=== PATIENT | male | born 1960 | race Caucasian/White ===

== ENCOUNTER 2019-11-19 13:53 | Outpatient (REF) | payer BC, SELFPAY ==
[2019-11-19 14:23] LABS: MANUAL DIFF FLAG NO
[2019-11-19 14:28] LABS: Basophils Absolute Auto 0.1 X10*3/uL (0.0-0.2); Basophils Percent Auto 0.8 % (0-2); Eosinophils Absolute Auto 0.3 X10*3/uL (0.0-0.4); Eosinophils Percent Auto 3.4 % (0-4); Hematocrit 41.7 % (42-52); Hemoglobin 14.4 g/dl (14.0-18.0); Imm Gran Abs Auto 0.02 X10*3/uL (0.00-0.03); Imm Gran Pct Auto 0.3 % (0.0-0.4); Lymphocytes Absolute Auto 2.8 X10*3/uL (1.2-4.9); Lymphocytes Percent Auto 38.2 % (20-40); Mean Corpuscular HGB Conc 34.5 g/dl (31.0-36.0); Mean Corpuscular Hemoglobin 31.3 pg (27.0-33.0); Mean Corpuscular Volume 90.7 fL (80-98); Mean Platelet Volume 9.6 fL (9.4-12.4); Monocytes Absolute Auto 0.9 X10*3/uL (0.1-1.2); Monocytes Percent Auto 12.2 % (2-11); Neutrophils Absolute Auto 3.3 X10*3/uL (2.0-8.3); Neutrophils Percent Auto 45.1 % (45-73); Platelet Count 272 X10*3/uL (160-400); Red Cell Distribution Width 11.9 % (11.0-16.0); White Blood Count 7.3 X10*3/uL (4.8-10.8)
[2019-11-19 15:03] LABS: Estimated Glomerular Filt Rate > 60; Potassium 4.2 mmol/l (3.3-5.1)
== END 2019-11-19 13:54 | disposition home or self-care (01) ==
LOC: HO.LAB 13:53
PROVIDERS: Visit Provider Internal Medicine Cardiovascular Disease
DX: I25.119 Atherosclerotic heart disease of native coronary artery with unspecified angina pectoris (principal)
CPT/HCPCS: 36415; 82565; 84132; 85025

== ENCOUNTER → 2019-12-18 12:04 | Outpatient (REF) | payer BC, SELFPAY ==
--- NOTE | 2019-12-18 13:00 | CA_ITS ---
Transthoracic Echocardiogram Patient (Last, First, Middle): Milton Agarwal, Gender: Male Date of : 1960 Age: 59 Procedure Date: 12/18/2019 Procedure Type: Transthoracic Echocardiogram Location: OP Height: 177.8 cm Weight: 90.72 kg BSA: 2.09 m2 Heart Rate: bpm BP: 128 / 60 mmHg Regional Environmental Manager: Referring MD: Pacheco Melvin MD Principal Systems Architect: Tom Ventura MD Symptoms: I42.9 CARDIOMYOPATHY Study Quality: Fair, Good images on Apical views ECG Rhythm: Sinus Conclusions: - 1. Moderate to severe reduction LV systolic function with LVEF of 30-35% with grade 1 diastolic dysfunction 2. Normal cardiac valvular Doppler 3. Normal RV systolic pressure 4. No pericardial effusion Findings Left Ventricle Normal left ventricular cavity size. There is normal left ventricular wall thickness. The left ventricular systolic function is moderate to severely decreased. The visually estimated ejection fraction is between 30-35%. Spectral Doppler is indicative of an impaired relaxation filling pattern. E/E prime ratio is <8, consistent with normal filling pressures. Evidence suggests grade I (mild) diastolic dysfunction. Right Ventricle Normal right ventricular cavity size and systolic function. Atria Both atria are normal in size. There is no evidence of interatrial shunt. Aortic Valve Normal aortic valve structure and function. There is no aortic valve stenosis. There is no aortic valve regurgitation. Mitral Valve Normal mitral valve structure and function. There is trace mitral valve regurgitation. There is no mitral valve stenosis. Pulmonic Valve The pulmonic valve is likely normal. Tricuspid Valve Normal tricuspid valve structure. There is trace tricuspid valve regurgitation. The right ventricular systolic pressure is normal. The right ventricular systolic pressure is 19 mmHg. Normal right atrial pressure. There is no evidence of pulmonary hypertension. Great Vessels All visible segments of the aorta are normal in size. The pulmonary artery was not well visualized. Venous The inferior vena cava is normal in size and collapses greater than 50% with inspiration. Pericardium/Pleural There is no evidence of pericardial effusion. Prior Study Comparison Changes noted compared to prior study dated: 03/20/2019. LV systolic function is marginally improved Measurements 2D Linear Measurements IVSd: 0.74 0.6-0.9/0.6-1.0 cm LVIDd: 4.65 3.9-5.3/4.2-5.9 cm LVIDd Index: 2.22 2.4-3.2/2.2-3.1 cm/m2 LVIDs: 3.81 2.0-3.6 cm LVPWd: 0.79 0.7-1.1 cm Ao Root: 3.10 2.1-3.5 cm LA Diam: 3.30 2.7-3.8/3.0-4.0 cm LAIDs Index: 1.58 1.5-2.3 cm/m2 LV Mass: 141.02 67-162/88-224 g LV Mass Index: 67.48 43-95/49-115 g/m2 LVOT Diam: 2.30 3.0+(-)1.3 cm 2D Systolic Function EF 4C: 33.10 >55% EF 2C: 40.50 >55% EF BiP: 34.90 >55% Mitral Valve MV Pk E: 0.48 MV PK A: 0.83 MV Decel Time: 232.00 E/A: 0.60 E'Lateral: 6.74 E'Medial: 5.55 E/E' Med: 8.70 E/E' Lat: 7.20 PHT: 68.00 MVA PHT: 3.24 Decel [place]: 2.08 Aortic Valve AoV Pk Collins: 1.16 AoV Mn [place]il[place]: 0.85 AoV VTI: 0.28 AoV Pk Grad: 5.00 Aov Mn Grad: 3.00 JODI Cont.VTI: 2.66 LVOT LVOT Pk Collins: 0.89 LVOT Mn Collins: 0.54 LVOT VTI: 0.18 LVOT Pk Grad: 3.00 LVOT Mn Grad: 1.00 LVOT Diam: 2.30 LVOT Area: 4.15 Diastolic Function MV Pk E: 0.48 MV Pk A: 0.83 E/A: 0.60 E'Medial: 5.55 E/E' Med: 8.70 E' Laterial: 6.74 E/E' Lat: 7.20 Tricuspid Valve TR Pk Collins: 2.00 TR Pk Grad: 16.00 RA Press: 3.00 RVSP: 19.00 Great Vessels Aorta Ao Root-2D: 3.10 2.0-3.7 cm Ao Asc: 3.10 2.1-3.4 cm Pulmonary Valve PV Pk Collins: 1.03 Peak PV Grad: 4.00 Updated in Other Vendor System with Status of Final Tom Ventura MD electronically signed on 12/19/2019 12:55:06 PM with status of Final
== END ==
LOC: HO.CARD 12:04
PROVIDERS: Visit Provider Internal Medicine
DX: I42.9 Cardiomyopathy, unspecified (principal)
CPT/HCPCS: 93306

== ENCOUNTER → 2019-12-25 11:00 | Outpatient (BNVA) | payer BC, SELFPAY | PROVIDERS: PCP Internal Medicine; Referring Provider Internal Medicine; Visit Provider Nurse Practitioner Family | DX: Z76.89 Persons encountering health services in other specified circumstances (principal) ==

== ENCOUNTER → 2020-04-01 12:37 | Outpatient (REF) | payer BC, SELFPAY ==
--- NOTE | 2020-04-01 12:43 | CA_ITS ---
Transthoracic Echocardiogram Patient (Last, First, Middle): Milton Agarwal, Gender: Male Date of : 1960 Age: 59 Procedure Date: 04/01/2020 Procedure Type: Transthoracic Echocardiogram Location: OP Height: 177.8 cm Weight: 90.72 kg BSA: 2.09 m2 Heart Rate: bpm BP: 122 / 80 mmHg Supervisor Hanging And Trimming: ANDREA Referring MD: Dee Bansal FUNERAL ASSISTANT-C Air Brake Tester: Tom Ventura MD Symptoms: I25.5 - Ischemic cardiomyopathy Study Quality: Fair ECG Rhythm: Sinus Conclusions: - 1. Mildly reduced LV systolic function with impaired relaxation filling pattern Findings Left Ventricle Normal left ventricular cavity size. There is normal left ventricular wall thickness. The left ventricular systolic function is mildly decreased. The visually estimated ejection fraction is between 45-50%. Spectral Doppler is indicative of an impaired relaxation filling pattern. E/E prime ratio is <8, consistent with normal filling pressures. Wall Motion Rest Echo Findings The inferoseptal wall is hypokinetic. The basal inferior segment is akinetic. All other scored wall segments showed normal motion. Prior Study Comparison Changes noted compared to prior study dated: 12/18/2019. LV systolic function is improved Measurements 2D Linear Measurements IVSd: 0.74 0.6-0.9/0.6-1.0 cm LVIDd: 5.24 3.9-5.3/4.2-5.9 cm LVIDd Index: 2.51 2.4-3.2/2.2-3.1 cm/m2 LVIDs: 3.39 2.0-3.6 cm LVPWd: 0.83 0.7-1.1 cm LV Mass: 178.68 67-162/88-224 g LV Mass Index: 85.49 43-95/49-115 g/m2 2D Systolic Function EF 4C: 42.70 >55% EF 2C: 47.70 >55% EF BiP: 46.40 >55% Mitral Valve MV Pk E: 0.88 MV PK A: 1.03 MV Decel Time: 146.00 E/A: 0.90 E'Lateral: 9.68 E'Medial: 11.50 E/E' Med: 7.60 E/E' Lat: 9.10 PHT: 43.00 MVA PHT: 5.12 Decel [place]: 6.01 Diastolic Function MV Pk E: 0.88 MV Pk A: 1.03 E/A: 0.90 E'Medial: 11.50 E/E' Med: 7.60 E' Laterial: 9.68 E/E' Lat: 9.10 Updated in Other Vendor System with Status of Final Tom Ventura MD electronically signed on 04/01/2020 4:07:27 PM with status of Final
== END ==
LOC: HO.CARD 12:37
PROVIDERS: Visit Provider Nurse Practitioner Family
DX: I25.5 Ischemic cardiomyopathy (principal)
CPT/HCPCS: 93308

== ENCOUNTER → 2020-04-22 10:46 | Outpatient (BNVA) | payer BC, SELFPAY | PROVIDERS: PCP Internal Medicine; Visit Provider Nurse Practitioner Family ==

== ENCOUNTER 2020-11-22 10:02 | Outpatient (REF) | payer BC, SELFPAY ==
[2020-11-22 12:03] LABS: Alanine Aminotransferase 25 U/L (0-40); Aspartate Amino Transferase 15 U/L (5-37); Cholesterol 126 mg/dL; HDL Cholesterol 38 mg/dL; LDL Cholesterol Calculated 70 mg/dl; Triglycerides 91 mg/dL
== END 2020-11-22 10:03 | disposition home or self-care (01) ==
LOC: HO.LAB 10:02
PROVIDERS: Nurse Practitioner Family; PCP Internal Medicine; Referring Provider Internal Medicine; Visit Provider Internal Medicine
DX: I25.10 Atherosclerotic heart disease of native coronary artery without angina pectoris (principal); E78.5 Hyperlipidemia, unspecified; I25.5 Ischemic cardiomyopathy; Z79.82 Long term (current) use of aspirin; Z79.899 Other long term (current) drug therapy
CPT/HCPCS: 36415; 80061; 84450; 84460; 93005

== ENCOUNTER 2021-05-26 10:54 | Outpatient (REF) | payer BC, SELFPAY ==
--- NOTE | ~2021-05-26 | US_ITS ---
EXAMINATION: US VENOUS ULTRASOUND WITH DOPPLER LOWER EXTREMITY, LEFT CLINICAL INFORMATION: Left lower extremity pain. COMPARISON: None TECHNIQUE: Ultrasound of the deep veins is performed from the hip to the calf with compression sonography and color and pulse Doppler assessment. Spectral analysis with color-flow imaging is performed. FINDINGS: There is normal venous compression and respiratory variation and augmented flow. The visualized common femoral vein, superficial femoral vein, profunda femoral vein, popliteal vein, and the trifurcation region shows no evidence of deep venous thrombosis. No left popliteal cyst. Mild subcutaneous edema seen in the left calf. A hypoechoic, horizontally oriented collection is seen in the anterior soft tissues in the left levy measuring approximately 4.3 x 1.3 x 3.8 cm. If the patient's symptoms persist, followup ultrasound in 5 days 7 days might be of value to exclude proximal propagation from a non-visualized calf vein. US/US venous duplex LE LT IMPRESSION: 1. No evidence for deep venous thrombosis in the visualized veins of the left lower extremity. 2. Soft tissue collection in the region of the left anterior levy with mild adjacent edema is nonspecific, but suggests a hematoma. Correlate with physical exam. * If these findings persist or enlarge, short-term repeat targeted soft tissue ultrasound can be performed as clinically indicated to assess for change.
== END 2021-05-26 10:55 | disposition home or self-care (01) ==
LOC: HO.HMGCX 10:54
PROVIDERS: PCP Internal Medicine; Visit Provider Internal Medicine
DX: I82.402 Acute embolism and thrombosis of unspecified deep veins of left lower extremity (principal)
CPT/HCPCS: 93971

== ENCOUNTER → 2021-06-02 07:16 | Outpatient (REF) | payer BC, SELFPAY ==
--- NOTE | 2021-06-02 07:19 | CA_ITS ---
Transthoracic Echocardiogram Patient (Last, First, Middle): Milton Agarwal, Gender: Male Date of : 1960 Age: 61 Procedure Date: 06/02/2021 Procedure Type: Transthoracic Echocardiogram Location: OP Height: 177.8 cm Weight: 90.72 kg BSA: 2.09 m2 Heart Rate: bpm BP: 138 / 82 mmHg Credit Operations Specialist: CATRACHITO Referring MD: Pacheco Melvin MD Symptoms: I25.5 - Ischemic cardiomyopathy Study Quality: Fair Conclusions: - Normal left ventricular cavity size. There is normal left ventricular wall thickness. The left ventricular systolic function is low normal. The visually estimated ejection fraction is between 50-55%. - E/E prime ratio is between 8 and 15 consistent with indeterminate filling pressures. - The basal inferior segment is akinetic. - Normal right ventricular cavity size and systolic function. Findings Left Ventricle Normal left ventricular cavity size. There is normal left ventricular wall thickness. The left ventricular systolic function is low normal. The visually estimated ejection fraction is between 50-55%. Abnormal diastolic function is noted. Spectral Doppler is indicative of an impaired relaxation filling pattern. E/E prime ratio is between 8 and 15 consistent with indeterminate filling pressures. Wall Motion Rest Echo Findings The basal inferior segment is akinetic. Right Ventricle Normal right ventricular cavity size and systolic function. Atria The left atrium is normal in size. Aortic Valve Normal aortic valve structure and function. There is no aortic valve stenosis. There is no aortic valve regurgitation. Mitral Valve Normal mitral valve structure and function. There is no mitral valve regurgitation. There is no mitral valve stenosis. Pulmonic Valve The pulmonic valve is likely normal. Tricuspid Valve Normal tricuspid valve structure and function. There is no tricuspid valve regurgitation. Normal right atrial pressure. There is no evidence of pulmonary hypertension. Great Vessels All visible segments of the aorta are normal in size. The visualized portions of the pulmonary artery and branches are normal. Venous The inferior vena cava is normal in size and collapses greater than 50% with inspiration. Pericardium/Pleural There is no evidence of pericardial effusion. Prior Study Comparison Changes noted compared to prior study dated: 04/01/2020. EF 50-55%, Measurements 2D Linear Measurements IVSd: 0.91 0.6-0.9/0.6-1.0 cm LVIDd: 5.52 3.9-5.3/4.2-5.9 cm LVIDd Index: 2.64 2.4-3.2/2.2-3.1 cm/m2 LVIDs: 3.97 2.0-3.6 cm LVPWd: 1.11 0.7-1.1 cm LA Diam: 3.70 2.7-3.8/3.0-4.0 cm LAIDs Index: 1.77 1.5-2.3 cm/m2 LV Mass: 271.24 67-162/88-224 g LV Mass Index: 129.78 43-95/49-115 g/m2 LVOT Diam: 2.20 3.0+(-)1.3 cm 2D Systolic Function EF 4C: 48.80 >55% EF 2C: 47.40 >55% EF BiP: 48.60 >55% Mitral Valve MV Pk E: 0.70 MV PK A: 1.03 MV Decel Time: 150.00 E/A: 0.70 E'Lateral: 8.49 E'Medial: 6.85 E/E' Med: 10.30 E/E' Lat: 8.30 PHT: 44.00 MVA PHT: 5.00 Decel [place]: 4.69 Aortic Valve AoV Pk Collins: 1.03 AoV Mn Collins: 0.78 AoV VTI: 0.23 AoV Pk Grad: 4.00 Aov Mn Grad: 3.00 JODI Cont.VTI: 2.79 LVOT LVOT Pk Collins: 0.81 LVOT Mn Collins: 0.52 LVOT VTI: 0.17 LVOT Pk Grad: 3.00 LVOT Mn Grad: 1.00 LVOT Diam: 2.20 LVOT Area: 3.80 Diastolic Function MV Pk E: 0.70 MV Pk A: 1.03 E/A: 0.70 E'Medial: 6.85 E/E' Med: 10.30 E' Laterial: 8.49 E/E' Lat: 8.30 Right Ventricle TAPSE (mm): 17.80 TVS' Collins: 10.70 Tricuspid Valve TR Pk Collins: 1.35 TR Pk Grad: 7.00 RA Press: 3.00 RVSP: 10.00 Great Vessels Aorta Sinus of Valsalva: 3.17 2.0-3.[address] [place]: 2.67 1.7-3.4 cm Ao Asc: 3.20 2.1-3.4 cm Ao Arch: 3.20 Updated in Other Vendor System with Status of Final Humberto Foster MD electronically signed on 06/04/2021 12:40:50 PM with status of Final
== END ==
LOC: HO.CARD 07:16
PROVIDERS: PCP Internal Medicine; Visit Provider Internal Medicine
DX: I25.5 Ischemic cardiomyopathy (principal)
CPT/HCPCS: 93306

== ENCOUNTER → 2021-06-08 15:04 | Outpatient (BNVA) | payer BC, SELFPAY | PROVIDERS: PCP Internal Medicine; Referring Provider Internal Medicine; Visit Provider Internal Medicine | DX: Z13.89 Encounter for screening for other disorder (principal) ==

== ENCOUNTER 2022-03-16 08:41 | Outpatient (REF) | payer BC, SELFPAY ==
[2022-03-16 11:12] LABS: MANUAL DIFF FLAG NO
[2022-03-16 11:24] LABS: Basophils Absolute Auto 0.1 X10*3/uL (0.0-0.2); Basophils Percent Auto 0.7 % (0-2); Eosinophils Absolute Auto 0.2 X10*3/uL (0.0-0.4); Eosinophils Percent Auto 2.4 % (0-4); Hemoglobin 15.3 g/dl (14.0-18.0); Imm Gran Abs Auto 0.02 X10*3/uL (0.00-0.03); Imm Gran Pct Auto 0.3 % (0.0-0.4); Lymphocytes Absolute Auto 2.6 X10*3/uL (1.2-4.9); Lymphocytes Percent Auto 34.6 % (20-40); Mean Corpuscular Hemoglobin 30.5 pg (27.0-33.0); Mean Corpuscular Volume 89.6 fL (80.0-98.0); Mean Platelet Volume 10.1 fL (9.4-12.4); Monocytes Absolute Auto 0.9 X10*3/uL (0.1-1.2); Monocytes Percent Auto 12.1 % (2-11); Neutrophils Absolute Auto 3.7 x10*3/uL (2.0-8.3); Neutrophils Percent Auto 49.9 % (45-73); Platelet Count 300 X10*3/uL (160-400); Red Blood Count 5.02 X10*6/uL (4.60-5.80); Red Cell Distribution Width 12.6 % (11.0-16.0); White Blood Count 7.5 X10*3/uL (4.8-10.8)
[2022-03-16 11:48] LABS: Alanine Aminotransferase 19 U/L (0-40); Albumin Level 4.1 g/dL (3.5-5.0); Alkaline Phosphatase 73 U/L (39-117); Anion Gap 11 (12-20); Aspartate Amino Transferase 14 U/L (5-37); Bilirubin Total 1.2 mg/dL (0.0-1.0); Blood Urea Nitrogen 15 mg/dL (9-16); Calcium 8.9 mg/dL (8.4-10.2); Carbon Dioxide 25 mmol/L (22-29); Chloride 108 mmol/L (96-108); Cholesterol 134 mg/dL; Estimated Glomerular Filt Rate > 60; Glucose Fasting 139 mg/dL (60-99); HDL Cholesterol 29 mg/dL; LDL Cholesterol Calculated 76 mg/dl; Potassium 4.2 mmol/L (3.3-5.1); Sodium 140 mmol/L (135-145); Total Protein 6.3 g/dL (6.5-8.0); Triglycerides 148 mg/dL
[2022-03-16 12:10] LABS: TSH reflex Free T4 0.99 uIU/mL (0.32-4.0)
== END 2022-03-16 08:42 | disposition home or self-care (01) ==
LOC: HO.HMGCLDS 08:41
PROVIDERS: Visit Provider Internal Medicine
DX: Z00.01 Encounter for general adult medical examination with abnormal findings (principal); I25.10 Atherosclerotic heart disease of native coronary artery without angina pectoris; I25.5 Ischemic cardiomyopathy; I10 Essential (primary) hypertension; E66.09 Other obesity due to excess calories; E78.5 Hyperlipidemia, unspecified; F17.200 Nicotine dependence, unspecified, uncomplicated
CPT/HCPCS: 36415; 80053; 80061; 84443; 85025

== ENCOUNTER 2022-03-30 09:05 | Outpatient (REF) | payer BC, SELFPAY ==
[2022-03-30 12:18] LABS: Estimated Average Glucose 137 mg/dL; Hemoglobin A1c % 6.4 %
== END 2022-03-30 09:06 | disposition home or self-care (01) ==
LOC: HO.HMGCLDS 09:05
PROVIDERS: PCP Internal Medicine; Visit Provider Internal Medicine
DX: R73.9 Hyperglycemia, unspecified (principal)
CPT/HCPCS: 36415; 83036

== ENCOUNTER → 2022-06-01 13:37 | Outpatient (BNVA) | payer BC, SELFPAY | PROVIDERS: PCP Internal Medicine; Visit Provider Internal Medicine | DX: Z13.89 Encounter for screening for other disorder (principal) ==

== ENCOUNTER → 2022-06-14 14:46 | Outpatient (BNVA) | payer BC, SELFPAY | PROVIDERS: PCP Internal Medicine; Referring Provider Internal Medicine; Visit Provider Internal Medicine | DX: I25.10 Atherosclerotic heart disease of native coronary artery without angina pectoris (principal); I25.5 Ischemic cardiomyopathy | CPT/HCPCS: 93005 ==

== ENCOUNTER 2023-06-20 14:34 | Outpatient (AMB) | payer OTHER, SELFPAY ==
[2023-06-20 14:37] VITALS: BP 114/82; PULSE 86; BMI 28.7
--- NOTE | 2023-06-20 14:37 | MHC.OFFVIS ---
Vital Signs 06/20/23 14:37 Height 5 ft 10 in Weight 199 lb 11.821 oz BMI 28.7 BP 114/82 Blood Pressure Location Lt brachial Position Sitting Pulse 86 Intake Visit Reasons: 1 yr f/up Press Offbearer Required: No Accompanied by: Self / Same As Patient Allergies No Known Allergies Allergy (Verified 06/14/22 15:22) Medication List - Last Reconciled 06/20/23 by Pacheco Melvin MD aspirin 81 mg PO DAILY atorvastatin 80 mg PO DAILY 90 days ezetimibe 10 mg PO DAILY lisinopril 5 mg PO DAILY metoprolol succinate ER 50 mg PO DAILY peg 3350-electrolytes 236-22.74-6.74 -5.86 gram (Golytely) 240 mL PO Q10M HPI Comments Details: Milton returns for follow-up regarding coronary disease. 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 Overall, he is doing well. No specific complaints like angina or shortness of breath. Fairly active with no limitations. He states he has not smoked in about 3 months or so. [facility], [facility] Medical History CAD (coronary artery disease) Hyperlipidemia Hypertension Ischemic cardiomyopathy Surgical History Hx of colonoscopy S/P cardiac cath (~11/2019) S/P cardiac cath (~03/2018) Family History Other No pertinent family history Social History Housing: Apartment Patient Tobacco Use Status: Current everyday Tobacco user Cigarettes Per Day: 10 e-Cigarette/Vaping Use: Currently Using service: No Current occupational status: employed Cognitive needs: No Hearing needs: No Vision needs: No Review of Systems Const Denies chills, Denies fatigue, Denies fever(s), Denies frequent falls, Denies weakness, Denies weight gain and Denies weight loss ENT Denies dizziness Card Denies chest pain, Denies leg edema, Denies lightheadedness, Denies palpitations, Denies dyspnea and Denies dyspnea on exertion Resp Denies cough, Denies dyspnea and Denies dyspnea on exertion GI Denies hematochezia Musc Denies abnormal gait, Denies muscle weakness, Denies numbness, Denies radiating pain into limb and Denies tingling Neuro Denies abnormal gait, Denies dizziness, Denies frequent falls, Denies numbness, Denies tingling and Denies weakness Endo Denies fatigue and Denies palpitations Physical Exam Vital Signs: Last Vital Signs Pulse 86 06/20/23 14:37 BP 114/82 06/20/23 14:37 BMI result Body Mass Index 28.7 Const General: comfortable and no acute distress Orientation/consciousness: patient oriented x3 HEENT Other: Unremarkable Head: Yes normal to inspection Neck Neck: Yes normal visual inspection Chest Chest palpation & inspection: normal inspection of the chest Resp Auscultation: clear to auscultation bilaterally Cardio Palpation: normal PMI Heart sounds: S1 normal heart sound present, S2 normal heart sound present, no gallops, no murmurs and no rubs GI Palpation (GI): Soft to palpation Back/Spine/Pelvis Other: unremarkable Skin General skin exam: no rashes or lesions noted Neuro General: patient oriented x3 Extrem General: Yes normal to inspection Psych Mental Status: mental status grossly normal Office Procedures EKG Details: EKG with sinus rhythm at 86/Min; moderate criteria for LVH; T inversions in the inferior as well as anterolateral leads. It appears slightly different from the last EKG. [id number], Complete Assessment & Plan Assessment & Plan (1) Atherosclerotic cardiovascular disease: Code(s): I25.10 - Atherosclerotic heart disease of [place] coronary artery without angina pectoris Category: Medical Plan: s/p PCI to LAD LEVEL VIAL INSPECTOR from November 2019. No significant disease elsewhere. Clinically, no overt symptoms but he does have some EKG changes not seen before. Hence obtain exercise myocardial perfusion imaging study. (2) Ischemic cardiomyopathy: Code(s): I25.5 - Ischemic cardiomyopathy Category: Medical Plan: Remains on beta-blockers and lisinopril. Obtain some labs as he has not had them in the last year. Repeat echocardiogram. (3) Other and unspecified hyperlipidemia: Code(s): E78.5 - Hyperlipidemia, unspecified Category: Medical Plan: Most recent LDL cholesterol 76 mg/dL. Triglycerides 148 mg/dL. In the past, LDL cholesterol as much as 183 mg/dL. Repeat lipids ordered. (4) Smoking: Code(s): F17.200 - Nicotine dependence, unspecified, uncomplicated Category: Social Hx Plan: He has not smoked in the last 3 months or so. Orders: Orders Lipid Panel Today I25.10 - Atherosclerotic heart disease of [place] coronary artery without angina pectoris CA stress test Today I25.10 - Atherosclerotic heart disease of [place] coronary artery without angina pectoris, R07.2 - Precordial pain NM cardiolite stress test Today I25.10 - Atherosclerotic heart disease of [place] coronary artery without angina pectoris, R07.2 - Precordial pain Comprehensive Met. Panel Today I25.10 - Atherosclerotic heart disease of [place] coronary artery without angina pectoris LDL Cholesterol Direct Today I25.10 - Atherosclerotic heart disease of [place] coronary artery without angina pectoris CA echo transthoracic complete Today I25.10 - Atherosclerotic heart disease of [place] coronary artery without angina pectoris Coding Level of Care Code Est Pt Level 4 (87062) Diagnoses Atherosclerotic cardiovascular disease I25.10 Ischemic cardiomyopathy I25.5 Other and unspecified hyperlipidemia E78.5 Smoking F17.200 CPT Codes EKG - CPT: [id number], Complete ([id number])
== END 2023-06-20 15:10 | disposition home or self-care (01) ==
PROVIDERS: PCP Internal Medicine; Visit Provider Internal Medicine
DX: I25.10 Atherosclerotic heart disease of native coronary artery without angina pectoris (principal); I25.5 Ischemic cardiomyopathy; E78.5 Hyperlipidemia, unspecified; F17.200 Nicotine dependence, unspecified, uncomplicated
CPT/HCPCS: 93010; 99214

== ENCOUNTER → 2023-06-20 14:34 | Outpatient (BNVA) | payer OTHER, SELFPAY | PROVIDERS: PCP Internal Medicine; Visit Provider Internal Medicine | DX: I25.10 Atherosclerotic heart disease of native coronary artery without angina pectoris (principal); I25.5 Ischemic cardiomyopathy; E78.5 Hyperlipidemia, unspecified; Z79.899 Other long term (current) drug therapy; Z87.891 Personal history of nicotine dependence | CPT/HCPCS: 93005 ==

== ENCOUNTER 2023-07-05 10:59 | Outpatient (REF) | payer OTHER, SELFPAY ==
[2023-07-05 13:54] LABS: Alanine Aminotransferase 18 U/L (0-40); Albumin Level 4.4 g/dL (3.5-5.0); Alkaline Phosphatase 76 U/L (39-117); Anion Gap 14 (12-20); Aspartate Amino Transferase 15 U/L (5-37); Bilirubin Total 0.9 mg/dL (0.0-1.0); Blood Urea Nitrogen 14 mg/dL (9-16); Calcium 8.7 mg/dL (8.4-10.2); Carbon Dioxide 24 mmol/L (22-29); Chloride 107 mmol/L (96-108); Cholesterol 123 mg/dL (<200); Estimated Glomerular Filt Rate > 60; Glucose Random 117 mg/dL (60-115); HDL Cholesterol 43 mg/dL (>40); LDL Cholesterol Calculated 61 mg/dL (<100); Potassium 4.2 mmol/L (3.3-5.1); Sodium 141 mmol/L (135-145); Total Protein 6.9 g/dL (6.5-8.0); Triglycerides 98 mg/dL (<150)
[2023-07-09 08:03] LABS: LDL Cholesterol Direct 71 mg/dL (<100)
== END 2023-07-05 11:00 | disposition home or self-care (01) ==
LOC: HO.HMGCLDS 10:59
PROVIDERS: PCP Internal Medicine; Visit Provider Internal Medicine
DX: I25.10 Atherosclerotic heart disease of native coronary artery without angina pectoris (principal)
CPT/HCPCS: 36415; 80053; 80061; 83721

== ENCOUNTER → 2023-08-30 07:35 | Outpatient (REF) | payer OTHER, SELFPAY ==
--- NOTE | ~2023-08-30 | NM_ITS ---
EXERCISE MYOCARDIAL PERFUSION STUDY INDICATION: Chest pain TECHNIQUE: The patient was brought in for an exercise perfusion study on 08/30/2023. Patient performed exercise as per Sanya protocol and was injected 30 mCi of sestamibi once target heart rate was achieved. Images were obtained using the SPECT gamma camera interlaced with the gating device. Images were obtained in supine position. Resting perfusion study was performed on 09/13/2023. Patient was administered 25 mCi of sestamibi intravenously at rest. Images were then obtained in supine position. Images were processed with the software and compared side to side in short axis, horizontal long axis and vertical long axis views. Total DLP 78mGy-cm. FINDINGS: Raw images were reviewed. The stress perfusion study showed diminished tracer uptake in the distal part of anterior wall. It is seen with CT attenuation correction as well. There is also reduced uptake in the basal part of inferior septum. No major change with CT attenuation correction. The gated study shows low normal LV systolic function with calculated LVEF of 54%. LV cavity is normal in size. The gated study shows reduced contractility in the distal anterior wall as well as in the basal part of inferior septum/inferior wall. Resting study shows diminished tracer uptake in the distal part of anterior wall and seen in both uncorrected and CT attenuation corrected images. Gating at rest reveals reduced contractility in the distal part of anterior wall as well as basal part of inferior septum. The findings are consistent with mostly fixed perfusion defect in the distal anterior wall with minimal reversibility. Mixed perfusion defect in the basal inferior septum. NM/NM cardiolite stress test IMPRESSION: 1. Myocardial perfusion imaging study shows mostly infarct pattern in the distal anterior wall with minimal ischemia. Mixed ischemia/infarct pattern in the basal inferior septum. 2. Gated LVEF is 54% during stress and 44% during rest. Correlate with echocardiogram. 3. Transient ischemic dilatation not present. EKG component of the test reported separately.
--- NOTE | 2023-08-30 07:40 | CA_ITS ---
Transthoracic Echocardiogram Patient (Last, First, Middle): Milton Agarwal, Gender: Male Date of : 1960 Age: 63 Procedure Date: 08/30/2023 Procedure Type: Transthoracic Echocardiogram Location: OP Height: 175.26 cm Weight: 90.27 kg BSA: 2.06 m2 Heart Rate: 105 bpm BP: 116 / 72 mmHg Protection Specialist: SB Referring MD: Pacheco Melvin MD Symptoms: I25.10 - Atherosclerotic heart disease of [place] coronary artery without... Study Quality: Adequate ECG Rhythm: Tachycardia Conclusions: - Normal left ventricular cavity size. There is normal left ventricular wall thickness. The left ventricular systolic function is low normal. The visually estimated ejection fraction is between 50-55%. - The inferior wall is hypokinetic. Findings Left Ventricle Normal left ventricular cavity size. There is normal left ventricular wall thickness. The left ventricular systolic function is low normal. The visually estimated ejection fraction is between 50-55%. There is evidence of regional wall motion abnormalities. There is paradoxical septal motion consistent with a left bundle branch block. Diastolic function is indeterminate on the basis of available data. Wall Motion Rest Echo Findings The inferior wall is hypokinetic. Right Ventricle Normal right ventricular cavity size and systolic function. Atria The left atrium is normal in size. The right atrium is normal in size. Aortic Valve There is a normal trileaflet aortic valve. There is no aortic valve stenosis. There is no aortic valve regurgitation. Mitral Valve The mitral valve appears normal. There is no mitral valve regurgitation. There is no mitral valve stenosis. Pulmonic Valve The pulmonic valve is likely normal. Tricuspid Valve Normal tricuspid valve structure. There is trace tricuspid valve regurgitation. Tricuspid regurgitation envelope is inadequate for calculation of right ventricular systolic pressure. Normal right atrial pressure. Great Vessels All visible segments of the aorta are normal in size. The visualized portions of the pulmonary artery and branches are normal. Venous The inferior vena cava is normal in size and collapses greater than 50% with inspiration. Pericardium/Pleural There is no evidence of pericardial effusion. Prior Study Comparison Changes noted compared to prior study dated: 06/02/2021. Inferior wall is severely hypokinetic. Measurements 2D Linear Measurements IVSd: 0.81 0.6-0.9/0.6-1.0 cm LVIDd: 4.47 3.9-5.3/4.2-5.9 cm LVIDd Index: 2.17 2.4-3.2/2.2-3.1 cm/m2 LVIDs: 3.54 2.0-3.6 cm LVPWd: 0.92 0.7-1.1 cm LA Diam: 3.60 2.7-3.8/3.0-4.0 cm LAIDs Index: 1.75 1.5-2.3 cm/m2 LV Mass: 154.97 67-162/88-224 g LV Mass Index: 75.23 43-95/49-115 g/m2 LVOT Diam: 2.30 3.0+(-)1.3 cm 2D Systolic Function EF 4C: 50.10 >55% EF 2C: 45.00 >55% EF BiP: 47.20 >55% Mitral Valve E'Lateral: 4.13 Aortic Valve AoV Pk Collins: 1.00 AoV Pk Grad: 4.00 JODI: 3.55 LVOT LVOT Pk Collins: 0.86 LVOT Mn [place]: 0.61 LVOT VTI: 0.16 LVOT Pk Grad: 3.00 LVOT Mn Grad: 2.00 LVOT Diam: 2.30 LVOT Area: 4.15 Diastolic Function E' Laterial: 4.13 Right Ventricle TAPSE (mm): 18.40 TVS' [place]: 8.87 Tricuspid Valve RA Press: 8.00 Great Vessels Aorta Sinus of Valsalva: 3.10 2.0-3.5 cm Ao Asc: 3.40 2.1-3.4 cm Ao Arch: 2.70 Pulmonary Veins Pulm Vein S/D 1.20 Pulmonary Valve PV Pk Collins: 0.84 Peak PV Grad: 3.00 Updated in Other Vendor System with Status of Final Humberto Foster MD electronically signed on 09/01/2023 9:45:45 PM with status of Final
--- NOTE | 2023-08-30 07:40 | CA_ITS ---
Acquisition Time: 2023-08-30 08:46:11 Total Exercise Time: 00:05:01 Test Indications: Chest Pain Medications: ASA ATORVASTATIN EZITIMIBE LISINOPRIL METOPROLOL Protocol: RAZA Max HR: 142 BPM 90% of Pred: 157 BPM Max BP: 152/088 mmHG Max Work Load: 5.1 METS Exercise stress test exercise 5 min of Raza protocol stage 1 achieving 90% MPHR, without anginal symptoms, with isolated PVCs, with brisk HR and normotensive response to exercise, without EKG changes. Nuclear images pending. Test reviewed with Dr. Foster. Patient did not take his metoprolol prior to test. Referred By: Pacheco Melvin Overread By: Elsie Aguirre
== END ==
LOC: HO.CARD 07:35
PROVIDERS: PCP Internal Medicine; Visit Provider Internal Medicine
DX: R07.2 Precordial pain (principal); I25.10 Atherosclerotic heart disease of native coronary artery without angina pectoris
CPT/HCPCS: 78452; 93017; 93306; A9500

== ENCOUNTER → 2023-08-30 07:40 | Outpatient (BNV) | payer OTHER, SELFPAY | PROVIDERS: PCP Internal Medicine; Visit Provider Nurse Practitioner | DX: R07.9 Chest pain, unspecified (principal) | CPT/HCPCS: 78452; 93016; 93018; 93350 ==

== ENCOUNTER 2023-09-06 12:09 | Outpatient (AMB) | payer OTHER, SELFPAY ==
[2023-09-06 12:14] VITALS: BP 148/86; PULSE 92; O2SAT 92; BMI 29.8
--- NOTE | 2023-09-06 12:14 | MHC.PC.OV ---
Vital Signs 09/06/23 12:14 Height 5 ft 10 in Weight 208 lb BMI 29.8 BP 148/86 H Blood Pressure Location Lt brachial Position Sitting Pulse 92 Pulse Source Pulse Oximeter Pulse Oximetry (%) 92 Oxygen Delivery Method Room Air Intake Visit Reasons: annual physical/patient needs saturday Allergies No Known Allergies Allergy (Verified 09/06/23 12:17) Medication List - Last Reconciled 09/06/23 by Lorie Harley MD aspirin 81 mg PO DAILY atorvastatin 80 mg PO DAILY 90 days ezetimibe 10 mg PO DAILY lisinopril 5 mg PO DAILY metoprolol succinate ER 50 mg PO DAILY peg 3350-electrolytes 236-22.74-6.74 -5.86 gram (Golytely) 240 mL PO Q10M Tobacco use date assessed: 09/06/23 Dental Screening Dental Screen Date: 09/06/23 Did you have a dental visit in the last 12 months?: Yes Did you have a dental problem in the last 6 months where you did not have access to dental care?: No Was dental information given to patient?: Patient has dentist HPI annual physical/patient needs saturday HPI Details Physical exam appointment I see that he has gained some weight since June We talked about the weight today his ideal body weight is around 170 or below He is trying to control his diet and avoid eating sweets No medication PCP office Blood pressure medication management through Cardiology office Blood pressure is slightly elevated today Colonoscopy has not done yet, patient says that he has seen the doctor last year but did not go for colonoscopy as he can not do it any other day but Saturday He is trying to schedule it on Saturday Labs were done recently reviewed with the patient Patient is overweight need to lose some weight Offer no complaints today PFSH Medical History Ischemic cardiomyopathy CAD (coronary artery disease) Hyperlipidemia Hypertension Surgical History Hx of colonoscopy S/P cardiac cath (~11/2019) S/P cardiac cath (~03/2018) Family History Other No pertinent family history Social History Housing: Apartment Patient Tobacco Use Status: Current everyday Tobacco user Cigarettes Per Day: 10 e-Cigarette/Vaping Use: Currently Using service: No Current occupational status: employed Cognitive needs: No Hearing needs: No Vision needs: No Questionnaire PHQ-9 Over the last 2 weeks, how often have you been bothered by any of the following problems? 1. Little interest or pleasure in doing things: not at all 2. Feeling down, depressed, or hopeless: not at all 3. Trouble falling or staying asleep, or sleeping too much: not at all 4. Feeling tired or having little energy: not at all 5. Poor appetite or overeating: not at all 6. Feeling bad about yourself - or that you are a failure or have let yourself or your family down: not at all 7. Trouble concentrating on things, such as reading the newspaper or watching television: not at all 8. Moving or speaking so slowly that other people could have noticed. Or the opposite - being so fidgety or restless that you have been moving around a lot more than usual: not at all 9. Thoughts that you would be better off or of hurting yourself in some way: not at all Total score: 0 Depression Screening Interpretation: Negative Depression Screening Done: Yes 72603 - PHQ-9 Billing: Yes Source: Developed by Drs. Jacob Styles, Kajal Cheng, Eugene Henson and colleagues, with an educational prem from [employer]. Thrive Questionnaire Date Thrive assessed: 09/06/23 I am a: Patient What is your living situation today?: I have a steady place to live Within the past 12 months, did the food you bought not last and you didn't have the money to get more?: Never true Within the past 12 months, did you worry whether your food would run out before you got money to buy more?: Never true Do you have trouble paying for medicines?: No Do you have trouble getting transportation to medical appointments?: No Do you have trouble paying your heating and electricity bill?: No Do you have trouble taking care of your child, family member or friend?: No Do you have trouble with day-to-day activities such as bathing, preparing meals, shopping, managing finances, etc.?: No Are you currently unemployed and looking for a job?: No Are you interested in more education?: No Please select the resources that you would like help with: Housing/Usp Currently or been in a relationship where the following occur: I choose not to answer THRIVE Score: 0 AUDIT C Alcohol Use Questionnaire (AUDIT-C) 1. How often do you have a drink containing alcohol?: 2-3 times a week 2. How many drinks containing alcohol do you have on a typical day when you are drinking?: 1 or 2 3. How often do you have six or more drinks on one occasion?: Less than monthly Total Score: 4 Score Reviewed/Action Taken: Yes KELSIE-7 AMB Questionnaire KELSIE-7 Date KELSIE - 7 assessed: 09/06/23 Feeling nervous, anxious, or on edge: 0 = Not at all Not being able to stop or control worryin = Not at all Worrying too much about different things: 0 = Not at all Trouble relaxin = Not at all Being so restless that it is hard to sit still: 0 = Not at all Becoming easily annoyed or irritable: 0 = Not at all Feeling afraid as if something awful might happen: 0 = Not at all Total KELSIE-7 score (0-4 normal; 5-9 mild; 10-14 moderate; 15-21 severe): 0 Source: Developed by Drs. Jacob Styles, Kajal Cheng, Eugene Henson and colleagues, with an educational prem from [employer]. KELSIE-7 Assessment Billing KELSIE-7 Assessment Tool: KELSIE-7 Assessment 00698 Review of Systems Const Denies chills, Denies fever(s) and Denies headache(s) Eyes Denies blurry vision ENT Denies headache(s), Denies nasal discharge, Denies nasal obstruction, Denies odynophagia and Denies sinus pain Card Denies chest pain at rest and Denies chest pain with activity Resp Denies cough and Denies hemoptysis GI Denies diarrhea, Denies odynophagia, Denies vomiting and Denies hematemesis Reports as per HPI Musc Denies abnormal gait Skin/Breast Reports as per HPI Neuro Denies Neuro-related abnormal movements, Denies Abnormal speech present, Denies abnormal gait, Denies headache(s) and Denies Sensory deficit (Neuro) Psych Denies mood swings and Denies paranoia Endo Reports as per HPI Bakari/Lymph Reports as per HPI Aller/Immun Reports as per HPI Physical exam (Primary Care) Vital Signs: Last Vital Signs Pulse 92 09/06/23 12:14 BP 148/86 H 09/06/23 12:14 Pulse Ox 92 09/06/23 12:14 Oxygen Delivery Method Room Air 09/06/23 12:14 BMI result Body Mass Index 29.8 Tobacco/Smoking Status: Tobacco use Status Tobacco use date assessed 09/06/23 09/06/23 12:18 Patient Tobacco Use Status Current everyday Tobacco 09/06/23 12:18 e-Cigarette/Vaping Use Currently Using 09/06/23 12:18 PHQ-9: PHQ-9 Score PHQ-9: Total score 0 09/06/23 12:21 Depression Screening Interpretation: Negative Thrive Assessment: Date of Thrive Assessment Date Thrive assessed 09/06/23 09/06/23 12:18 Currently or been in a relationship where the following occur: I choose not to answer Const General: cooperative, comfortable and no acute distress Orientation/consciousness: patient oriented x3 HENMT Head: Yes normocephalic and Yes atraumatic Eyes General: appearance normal, both eyes and all related structures Pupils: Equal, round and reactive pupils present EOM: EOMs intact bilaterally Neck Neck: Yes supple and No lymphadenopathy Thyroid: Thyroid normal Lymphatic: no lymphadenopathy noted Resp Effort & Inspection: normal respiratory effort and able to speak in complete sentences Auscultation: clear to auscultation bilaterally Cardio Heart sounds: S1 normal heart sound present and S2 normal heart sound present GI Palpation (GI): Soft to palpation and nontender Auscultation: normal bowel sounds General: Yes no CVA tenderness Back/Spine/Pelvis Back: no CVA tenderness Skin General skin exam: elasticity normal and turgor normal Neuro General: patient oriented x3 and gait normal Cranial nerves: Yes Equal, round and reactive pupils present Speech: No Abnormal speech present Sensory Exam: No Sensory deficit (Neuro) Coordination: tandem gait normal and Romberg test negative Extrem General: Yes normal exam except as noted and No edema Assessment and Plan Assessment & Plan (1) Encounter for general adult medical examination with abnormal findings: Code(s): Z00.01 - Encounter for general adult medical examination with abnormal findings (2) Atherosclerotic cardiovascular disease: Code(s): I25.10 - Atherosclerotic heart disease of [place] coronary artery without angina pectoris (3) Ischemic cardiomyopathy: Code(s): I25.5 - Ischemic cardiomyopathy (4) Hypertension: Code(s): I10 - Essential (primary) hypertension Qualifiers: Hypertension type: primary hypertension Qualified Code(s): I10 - Essential (primary) hypertension (5) Tobacco use disorder: Code(s): F17.200 - Nicotine dependence, unspecified, uncomplicated (6) Impaired fasting blood sugar: Code(s): R73.01 - Impaired fasting glucose (7) Overweight (BMI 25.0-29.9): Code(s): E66.3 - Overweight (8) Elevated blood pressure reading: Code(s): R03.0 - Elevated blood-pressure reading, without diagnosis of hypertension (9) Lipid disorder: Code(s): E78.9 - Disorder of lipoprotein metabolism, unspecified Plan Physical exam appointment I see that he has gained some weight since June We talked about the weight today his ideal body weight is around 170 or below He is trying to control his diet and avoid eating sweets No medication PCP office Blood pressure medication management through Cardiology office Blood pressure is slightly elevated today Colonoscopy has not done yet, patient says that he has seen the doctor last year but did not go for colonoscopy as he can not do it any other day but Saturday He is trying to schedule it on Saturday Labs were done recently reviewed with the patient Patient is overweight need to lose some weight Offer no complaints today Coding Level of Care Code Est Pt Level 3 (98111) Est Pt Prev Care 40-64y(93711) Diagnoses Encounter for general adult medical examination with abnormal findings Z00.01 Atherosclerotic cardiovascular disease I25.10 Ischemic cardiomyopathy I25.5 Primary hypertension I10 Hypertension type: primary hypertension Tobacco use disorder F17.200 Impaired fasting blood sugar R73.01 Overweight (BMI 25.0-29.9) E66.3 Elevated blood pressure reading R03.0 Lipid disorder E78.9 Additional Codes KELSIE-7 Assessment Billing - KELSIE-7 Assessment Tool: KELSIE-7 Assessment 64220 ([id number])
== END 2023-09-06 12:30 | disposition home or self-care (01) ==
PROVIDERS: PCP Internal Medicine; Visit Provider Internal Medicine
DX: Z00.00 Encounter for general adult medical examination without abnormal findings (principal); I25.10 Atherosclerotic heart disease of native coronary artery without angina pectoris; I25.5 Ischemic cardiomyopathy; I10 Essential (primary) hypertension; F17.200 Nicotine dependence, unspecified, uncomplicated; R73.01 Impaired fasting glucose; E66.3 Overweight; R03.0 Elevated blood-pressure reading, without diagnosis of hypertension; E78.9 Disorder of lipoprotein metabolism, unspecified
CPT/HCPCS: 99396

== ENCOUNTER 2023-10-22 12:51 | Outpatient (AMB) | payer OTHER, SELFPAY ==
--- NOTE | 2023-10-22 13:11 | A.OFFVIS_ITS ---
Vital Signs 10/22/23 13:12 Height 5 ft 10 in Weight 202 lb 13.204 oz BMI 29.1 BP 128/70 Blood Pressure Location Lt brachial Position Sitting Pulse 84 Pulse Source Pulse Oximeter Intake Visit Reasons: follow up Echo/Stress Test Allergies No Known Allergies Allergy (Verified 09/06/23 12:17) Medication List - Last Reconciled 10/22/23 by Pacheco Melvin MD aspirin 81 mg PO DAILY atorvastatin 80 mg PO DAILY 90 days ezetimibe 10 mg PO DAILY lisinopril 5 mg PO DAILY metoprolol succinate ER 50 mg PO DAILY HPI Comments Details: Milton returns for follow-up regarding coronary disease. 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 He states, he is doing very well. He states his stamina is very good. No chest pain or in fact any cardiac symptoms. Unlimited activity and exercise tolerance. [facility] Medical History Ischemic cardiomyopathy CAD (coronary artery disease) Hyperlipidemia Hypertension Surgical History Hx of colonoscopy S/P cardiac cath (~11/2019) S/P cardiac cath (~03/2018) Family History Other No pertinent family history Social History Housing: Apartment Patient Tobacco Use Status: Current everyday Tobacco user Cigarettes Per Day: 10 e-Cigarette/Vaping Use: Currently Using service: No Current occupational status: employed Cognitive needs: No Hearing needs: No Vision needs: No Review of Systems Const Denies weakness ENT Denies dizziness Card Denies chest pain, Denies chest pain with activity, Denies syncope, Denies rapid heart rate, Denies pedal edema, Denies edema, Denies leg edema, Denies lightheadedness, Denies palpitations, Denies dyspnea, Denies dyspnea on exertion and Denies orthopnea Resp Denies cough, Denies dyspnea and Denies dyspnea on exertion GI Denies hematochezia and Denies change in stool character Musc Denies abnormal gait, Denies muscle cramps, Denies muscle weakness, Denies numbness, Denies radiating pain into limb and Denies tingling Neuro Denies abnormal gait, Denies dizziness, Denies syncope, Denies numbness, Denies tingling and Denies weakness Endo Denies palpitations Physical Exam Vital Signs: Last Vital Signs Pulse 84 10/22/23 13:12 BP 128/70 10/22/23 13:12 BMI result Body Mass Index 29.1 Const General: comfortable and no acute distress Orientation/consciousness: patient oriented x3 HEENT Other: Unremarkable Head: Yes normal to inspection Neck Neck: Yes normal visual inspection Chest Chest palpation & inspection: normal inspection of the chest Resp Auscultation: clear to auscultation bilaterally Cardio Palpation: normal PMI Heart sounds: S1 normal heart sound present, S2 normal heart sound present, no gallops, no murmurs and no rubs GI Palpation (GI): Soft to palpation Back/Spine/Pelvis Other: unremarkable Skin General skin exam: no rashes or lesions noted Neuro General: patient oriented x3 Extrem General: Yes normal to inspection Psych Mental Status: mental status grossly normal Assessment & Plan Assessment & Plan (1) Atherosclerotic cardiovascular disease: Code(s): I25.10 - Atherosclerotic heart disease of [place] coronary artery without angina pectoris Category: Medical Plan: s/p PCI to LAD MERCHANDISING REPRESENTATIVE from November 2019. No significant disease elsewhere. In the echocardiogram, LVEF 50-55%. Inferior hypokinesis. In the perfusion imaging, infarct pattern in the distal anterior wall with minimal ischemia. Mixed ischemia/infarct pattern in the basal inferior septum. In the exercise portion, he was able to do 5 minutes on Sanya protocol and achieved 90% of max predicted heart rate without angina or EKG evidence of ischemia. On reviewing echocardiogram findings from 2019, inferior wall motion abnormalities were described even then. Hence not a new finding. Overall, established coronary disease, asymptomatic and normal lifestyle otherwise. Based on the current evidence, we will treat him for chronic ischemic heart disease. Do not see a strong reason for repeat catheterization. He in fact agrees with this plan. Continue current medical regimen. (2) Ischemic cardiomyopathy: Code(s): I25.5 - Ischemic cardiomyopathy Category: Medical Plan: Remains on beta-blockers and lisinopril. In the most recent echocardiogram, LVEF 50-55%. (3) Other and unspecified hyperlipidemia: Code(s): E78.5 - Hyperlipidemia, unspecified Category: Medical Plan: Stable. On statins. LDL cholesterol 60s-70s mg/dl. (4) Smoking: Code(s): F17.200 - Nicotine dependence, unspecified, uncomplicated Category: Social Hx Plan: He has not smoked in the last few months. Plan Follow-up in 1 year. In the interim, he will contact us with any concerns. Coding Level of Care Code Est Pt Level 4 (00766) Diagnoses Atherosclerotic cardiovascular disease I25.10 Ischemic cardiomyopathy I25.5 Other and unspecified hyperlipidemia E78.5 Smoking F17.200
[2023-10-22 13:12] VITALS: BP 128/70; PULSE 84; BMI 29.1
== END 2023-10-22 13:27 | disposition home or self-care (01) ==
PROVIDERS: PCP Internal Medicine; Visit Provider Internal Medicine
DX: I25.10 Atherosclerotic heart disease of native coronary artery without angina pectoris (principal); I25.5 Ischemic cardiomyopathy; E78.5 Hyperlipidemia, unspecified; F17.200 Nicotine dependence, unspecified, uncomplicated
CPT/HCPCS: 99214

== ENCOUNTER → 2023-10-22 12:51 | Outpatient (BNVA) | payer OTHER, SELFPAY | PROVIDERS: PCP Internal Medicine; Visit Provider Internal Medicine ==

== ENCOUNTER 2024-10-22 14:30 | Outpatient (AMB) | payer OTHER, SELFPAY ==
[2024-10-22 14:42] VITALS: BP 122/80; PULSE 117; BMI 29.1
--- NOTE | 2024-10-22 14:42 | A.OFFVIS_ITS ---
Vital Signs 10/22/24 14:42 Height 5 ft 10 in Weight 202 lb 13.204 oz BMI 29.1 BP 122/80 Blood Pressure Location Lt brachial Position Sitting Pulse 117 H Pulse Source Monitor Intake Visit Reasons: 1 yr /fup Allergies No Known Allergies Allergy (Verified 09/06/23 12:17) Medication List - Last Reconciled 10/22/24 by Pacheco Melvin MD aspirin 81 mg PO DAILY atorvastatin 80 mg PO DAILY ezetimibe 10 mg PO DAILY lisinopril 5 mg PO DAILY metoprolol succinate ER 50 mg PO DAILY HPI Comments Details: Milton returns for follow-up regarding coronary disease. 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 Overall, he states he is doing quite well. He has got absolutely no concerns. No angina or shortness of breath or in fact any other symptoms. Today's heart rate is slightly high but he states he is very anxious coming here. Also, apparently he forgot to take his morning medications. [facility] Medical History Ischemic cardiomyopathy CAD (coronary artery disease) Hyperlipidemia Hypertension Surgical History Hx of colonoscopy S/P cardiac cath (~11/2019) S/P cardiac cath (~03/2018) Family History Other No pertinent family history Social History Housing: Apartment Patient Tobacco Use Status: Current everyday Tobacco user Cigarettes Per Day: 10 e-Cigarette/Vaping Use: Currently Using service: No Current occupational status: employed Cognitive needs: No Hearing needs: No Vision needs: No Review of Systems Const Denies weakness ENT Denies dizziness Card Denies chest pain, Denies chest pain with activity, Denies syncope, Denies rapid heart rate, Denies pedal edema, Denies edema, Denies leg edema, Denies lightheadedness, Denies palpitations, Denies dyspnea, Denies dyspnea on exertion and Denies orthopnea Resp Denies cough, Denies dyspnea and Denies dyspnea on exertion GI Denies hematochezia and Denies change in stool character Musc Denies abnormal gait, Denies muscle cramps, Denies muscle weakness, Denies numbness, Denies radiating pain into limb and Denies tingling Neuro Denies abnormal gait, Denies dizziness, Denies syncope, Denies numbness, Denies tingling and Denies weakness Endo Denies palpitations Physical Exam Vital Signs: Last Vital Signs Pulse 117 H 10/22/24 14:42 BP 122/80 10/22/24 14:42 BMI result Body Mass Index 29.1 Const General: comfortable and no acute distress Orientation/consciousness: patient oriented x3 HEENT Other: Unremarkable Head: Yes normal to inspection Neck Neck: Yes normal visual inspection Chest Chest palpation & inspection: normal inspection of the chest Resp Auscultation: clear to auscultation bilaterally Cardio Palpation: normal PMI Heart sounds: S1 normal heart sound present, S2 normal heart sound present, no gallops, no murmurs and no rubs GI Palpation (GI): Soft to palpation Back/Spine/Pelvis Other: unremarkable Skin General skin exam: no rashes or lesions noted Neuro General: patient oriented x3 Extrem General: Yes normal to inspection Psych Mental Status: mental status grossly normal Office Procedures EKG Details: EKG with underlying sinus tachycardia at 117/Min; minimal criteria for LVH versus normal variant; T inversions in the anterolateral leads; [place] [id number], Complete Assessment & Plan Assessment & Plan (1) Atherosclerotic cardiovascular disease: Code(s): I25.10 - Atherosclerotic heart disease of [place] coronary artery without angina pectoris Category: Medical Plan: s/p PCI to LAD SLAB PULLER from November 2019. No significant disease elsewhere. In the echocardiogram, LVEF 50-55%. Inferior hypokinesis. In the perfusion imaging, infarct pattern in the distal anterior wall with minimal ischemia. Mixed ischemia/infarct pattern in the basal inferior septum. In the exercise portion, he was able to do 5 minutes on Sanya protocol and achieved 90% of max predicted heart rate without angina or EKG evidence of ischemia. On reviewing echocardiogram findings from 2019, inferior wall motion abnormalities were described even then. Hence not a new finding. Overall, stable coronary artery disease and normal lifestyle with no symptoms. We will continue the current medical regimen. Recheck lipids. Sinus tachycardia most likely from anxiety/not taking beta-blockers today. Advised him to go home on take his beta-blockers. He will contact us if any concerns. (2) Ischemic cardiomyopathy: Code(s): I25.5 - Ischemic cardiomyopathy Category: Medical Plan: Remains on beta-blockers and lisinopril. In the last echocardiogram, LVEF 50- 55%. Clinically, no shortness of breath or chest pain (3) Other and unspecified hyperlipidemia: Code(s): E78.5 - Hyperlipidemia, unspecified Category: Medical Plan: Stable. On statins. LDL cholesterol 60s-70s mg/dl. To repeat. Plan Discussion Notes During the visit, we discussed the importance of medication adherence, particularly with metoprolol, to manage the patient's heart rate. We also addressed the patient's anxiety related to medical visits and scheduled a follow-up in six months to reassess his condition. Patient was informed and verbally consented to the use of an ambient scribe for clinic note documentation during this visit. Orders: Orders Lipid Panel Today E78.5 - Hyperlipidemia, unspecified, I25.10 - Atherosclerotic heart disease of [place] coronary artery without angina pectoris Basic Metabolic Panel Today I25.10 - Atherosclerotic heart disease of [place] coronary artery without angina pectoris Liver Panel Today I25.10 - Atherosclerotic heart disease of [place] coronary artery without angina pectoris CA echo transthoracic complete 6 Months I25.5 - Ischemic cardiomyopathy Patient Instructions: - Continue taking metoprolol as prescribed. - Schedule and attend a follow-up appointment in six months. - Address anxiety, especially related to medical visits. Coding Level of Care Code Est Pt Level 4 (20775) Complex EM visit Add On G2211 Diagnoses Atherosclerotic cardiovascular disease I25.10 Ischemic cardiomyopathy I25.5 Other and unspecified hyperlipidemia E78.5 CPT Codes EKG - CPT: 65374-[id number], Complete ([id number])
--- OUTSIDE RECORDS SUMMARY | 2024-10-22 15:48 | XMS_ITS ---
Author Name [facility] Organization Unknown History of Medication Use Medication Directions Dispensed Refills Start Date End Date Stat us [id number] esium sulfates (Suprep Bowel Prep Kit) 17.5-3.13-1.6 GM/177ML Solution solution Follow directions provided by physician's office. 08/23/2024 active Aspirin Low Dose 81 MG EC tablet Take 1 tablet (81 mg total) by mouth. 07/23/2024 active metoPROLOL SUCCINATE (TOPROL-XL) 50 MG 24 hr tablet Take 1 tablet (50 mg total) by mouth. 07/18/2024 active ezetimibe (ZeTIA) 10 MG tablet Take 1 tablet (10 mg total) by mouth. 07/04/2024 active atorvastatin (LIPITOR) 80 MG tablet Take 1 tablet (80 mg total) by mouth. 05/24/2024 active lisinopril (PRINIVIL,ZeSTRIL) 5 MG tablet Take 1 tablet (5 mg total) by mouth. 05/24/2024 active Problems Problem Status Onset Date Problem Type Date of Resolution Source Special screening for malignant neoplasms, colon active EncounterDiagnosisAct [facility] Primary hypertension active 2024-08-15 ProblemAct [facility] Mixed hyperlipidemia active 2024-08-15 ProblemAct [facility] Coronary artery disease involving [place] coronary artery of [place] heart without angina pectoris active 2024-08-15 ProblemAct [facility] Encounters Encounter Type Encounter Reason Primary Diagnosis Location Date Ambulatory [facility] 08/14/2024 Care Team Organization Name Specialty Phone Email Start Date End Da te [facility] 08[facility]28/[address] [facility] 08/28/2024 [facility] PRATIBHA RODRÍGUEZ Primary Care 08/14/2024 [facility] PCP Purse Maker 08/14/2024 09/12/2024 [facility] NO PCP Primary Care 06/12/2024
--- OUTSIDE RECORDS SUMMARY | 2024-10-22 15:48 | XMS_ITS | Clinical Summary ---
Author Organization [facility] Address [address] [place] [address] Care Team Providers Care Screen Making Technician Name Role Phone Annemarie Kriss Roche APRN Primary Care Provider [phone] Pacheco Melvin MD Unavailable Allergies No known active allergies Medications Aspirin Low Dose 81 MG EC tablet Take 1 tablet (81 mg total) by mouth. 5 Active atorvastatin (LIPITOR) 80 MG tablet Take 1 tablet (80 mg total) by mouth. 5 Active ezetimibe (ZeTIA) 10 MG tablet Take 1 tablet (10 mg total) by mouth. 5 Active lisinopril (PRINIVIL,ZeSTR IL) 5 MG tablet Take 1 tablet (5 mg total) by mouth. 5 Active metoPROLOL SUCCINATE (TOPROL-XL) 50 MG 24 hr tablet Take 1 tablet (50 mg total) by mouth. 5 Active sodium-potassiu m-magnesium sulfates (Suprep Bowel Prep Kit) 17.5-3.13-1.6 GM/177ML Solution solutionIndicat ions:Special screening for malignant neoplasms, colon Follow directions provided by physician's office. 177 mL 5 Active Active Problems Problem Noted Date Diagnosed Date Mixed hyperlipidemia 08/15/2024 Assessment & Plan (08/15/2024 12:11 PM EDT): Continue atorvastatin [address] Melvin. Primary hypertension 08/15/2024 Assessment & Plan (08/15/2024 12:11 PM EDT): BP within normal limits in office, continue lisinopril 5 mg and metoprolol [address] Melvin. Coronary artery disease invo lving [place] coronary artery of [place] heart without angina pectoris 08/15/2024 Assessment & Plan (08/15/2024 12:11 PM EDT): Continue aspirin [address] Melvin. Discussed smoking cessation, patient declines need for supports at this time. Encounters Date Type Department Care Team Description 09/30/2024 Orders Only [address] [phone] Pacheco Melvin MD 08/25/2024 Orders Only [address] [phone] Pacheco Melvin MD 08/19/2024 Telephone [facility] [address] [place] [address] Ann Marie Cheng MA Bypass Screening 08/19/2024 [facility]phone [facility] [address] [facility] [address] Rochelle Cheng MA Referral 08/14/2024 2:00 PM EDT Office Visit [address] [phone] Kriss Sharpe, INSURANCE AGENCY OWNER Encounter for preventative adult health care examination (Primary Dx); Colon cancer screening; Mixed hyperlipidemia ; Primary hypertension ; Coronary artery disease involving [place] coronary artery of [place] heart without angina pectoris ; Right leg pain 08/14/2024 Travel from Last 3 Months Social History Tobacco Use Types Packs/Day Years Used Date Smoking Tobacco: Every Day Cigarettes 1 10.7 Started: 2014; Last attempted to quit: 2002 Smokeless Tobacco: Never Tobacco Cessation:Ready to Q uit: Not Asked Alcohol Use Standard Drinks/Week Comments Yes 0 (1 standard drink = 0.6 oz pur e alcohol) Social Connection and Isolat ion Panel [NHANES] Answer Date Recorded In a typical week, how many times do you talk on the phone with family, friends, or neighbors? More than three times a week 08/14/2024 Frequency of Social Gatherin gs with Friends and Family Not on file 08/14/2024 Attends [employer] Services Not on file 08/14 Active Member of Clubs or Organizations Not on f ile 08/14/2024 Attends Club or Organization Meetings Not on ham[place] e 08/14/2024 Marital Status Not on file 08/14/2024 AUDIT-C Answer Date Recorded Q1: How often do you have a drink containing alcohol? 4 or more times a week 08/14/2024 Q2: How many drinks containi ng alcohol do you have on a typical day when you are drinking? 1 or 2 Frequency of Binge Drinking Not on file 07/20 PHQ-2 Answer Date Recorded PHQ-2 Total Score 0 08/14/2024 Hunger Vital Sign Answer Date Recorded Within the past 12 months, y ou worried that your food would run out before you got the money to buy more. Never true 08/15/19 25 Within the past 12 months, t he food you bought just didn't last and you didn't have money to get more. Never true 08/14/2024 PRAPARE - Transportation Answer Date Re corded In the past 12 months, has l ack of transportation kept you from medical appointments or from getting medications? No 07/20 In the past 12 months, has l ack of transportation kept you from meetings, work, or from getting things needed for daily living? No 08/14/2024 Housing Stability Vital Sign Answer Wilfrid e Recorded In the last 12 months, was t here a time when you were not able to pay the mortgage or rent on time? No 08/14/2024 In the past 12 months, how m any times have you moved where you were living? 0 08/14/2024 At any time in the past 12 m [facility], were you homeless or living in a fci (including now)? No 08/14/2024 Education Answer Date Recorded What is the highest level of school you have completed or the highest degree you have received? GED or equivalent Sex and Gender Information Value Date Recorded Sex Assigned at Male 06/12/2024 10:56 AM EDT Legal Sex Male 2:11 PM EDT Gender Identity Male 06/12/2024 10:56 AM EDT Sexual Orientation Choose not to disclose 2024 10:56 AM EDT Last Filed Vital Signs Vital Sign Reading Time Taken Comments Blood Pressure 126/79 08/14/2024 1:09 PM EDT Pulse 106 08/14/2024 1:09 PM EDT Temperature 36.2 C (97.1 F) 08/14/2024 1:09 PM EDT Respiratory Rate 18 08/14/2024 1:09 PM EDT Oxygen Saturation 96% 08/14/2024 1:09 PM EDT Inhaled Oxygen Concentration - - Weight 92.5 kg (204 lb) 08/19/2024 11:39 AM EDT Height 177.8 cm (5' 10 ) 08/19/2024 11:39 AM EDT Body Mass Index 29.27 08/19/2024 11:39 AM EDT Plan of Treatment Upcoming Encounters Date Type Department Care Team (Late st Contact Info) Description 12/18/2024 9:45 AM EDT Office Visit [address] [phone] Kriss Sharpe, INSURANCE AGENCY OWNER [address] [place] [id number] Health Maintenance Due Date Last Done Comments Hepatitis C Virus Screening 1960 HIV Screening 1973 Physical 1978 DTaP/Tdap/Td Vaccines (1 - Tdap) 05/03/1979 Pneumococcal Vaccines 50+ (1 of 2 - PCV) 05/03/1979 Colonoscopy 2005 Zoster (Shingles) Vaccine (1 of 2) 2010 Influenza Vaccine 09/18/2024 COVID-19 Vaccine (1 - 2023-2 5 season) 2024 RSV Vaccine 60 years and old er and Patients (1 - 1-dose 75+ series) 05/03/2035 Hepatitis B Vaccines Aged Out No long er eligible based on patient's age to complete this topic Insurance HMO Care Teams Screen Making Technician Relationship Specialty Start Date End Date Kriss Sharpe APRN [facility] [place] [address] PCP - General Internal Medicine 08/14/24 Pacheco Melvin MD [address] [phone] Cardiology Hospitalist 08/19/24
== END 2024-10-22 15:13 | disposition home or self-care (01) ==
PROVIDERS: Visit Provider Internal Medicine
DX: I25.10 Atherosclerotic heart disease of native coronary artery without angina pectoris (principal); I25.5 Ischemic cardiomyopathy; E78.5 Hyperlipidemia, unspecified
CPT/HCPCS: 93010; 99214

== ENCOUNTER → 2024-10-22 14:30 | Outpatient (BNVA) | payer OTHER, SELFPAY | PROVIDERS: PCP Internal Medicine; Visit Provider Internal Medicine | DX: I25.5 Ischemic cardiomyopathy (principal); I25.10 Atherosclerotic heart disease of native coronary artery without angina pectoris; I10 Essential (primary) hypertension; E78.5 Hyperlipidemia, unspecified; I49.3 Ventricular premature depolarization; R00.1 Bradycardia, unspecified; Z98.890 Other specified postprocedural states; Z95.5 Presence of coronary angioplasty implant and graft | CPT/HCPCS: 93005 ==

== ENCOUNTER 2024-10-30 08:29 | Outpatient (REF) | payer OTHER, SELFPAY ==
--- OUTSIDE RECORDS SUMMARY | 2024-10-30 09:04 | XMS_ITS | Clinical Summary ---
Author Organization [facility] Address [address] [place] [address] Care Team Providers Care Sheet Rock Installer Name Role Phone Annemarie, Kriss Roche APRN Primary Care Provider [phone] Pacheco Melvin MD Unavailable Allergies No known [...] Dr. Melvin. Coronary artery disease invo lving [place] coronary artery of [place] heart without angina pectoris 08/15/2024 Assessment & Plan (08/15/2024 12:11 PM EDT): Continue aspirin [address] Melvin. Discussed smoking cessation, patient declines need for supports at this time. Encounters Date Type Department Care Team Description 09/30/2024 Orders Only [address] [phone] Pacheco Melvin MD 08/25/2024 Orders Only [address] [address] Pacheco Melvin MD 08/19/2024 Telephone [facility] [address] [place] [address] Ann Marie Cheng MA Bypass Screening 08/19/2024 Telephone [facility] [address] [place] [address] Rochelle Cheng MA Referral 08/14/2024 2:00 PM EDT Office Visit [address] [address] Kriss Sharpe, A R COLLECTIONS REP Encounter for preventative adult health care examination (Primary Dx); Colon cancer screening; Mixed hyperlipidemia ; Primary hypertension ; Coronary artery disease involving [place] coronary artery of [place] heart without angina pectoris ; Right leg [...] and Family Not on file 08/14/2024 Attends [employer] Services Not on file 08/14 Active Member [...] any time in the past 12 m [facility], were you homeless or living in a alf (including now)? No 08/14/2024 Education Answer Date [...] Description 12/18/2024 9:45 AM EDT Office Visit [address] [phone] Kriss Sharpe, A R COLLECTIONS REP [address] [place] [phone] Health Maintenance Due Date Last Done Comments [...] complete this topic Insurance HMO Care Teams Sheet Rock Installer Relationship Specialty Start Date End Date Kriss Sharpe APRN [facility] [place] [address] PCP - General Internal Medicine 08/14/24 Pacheco Melvin MD [address] [address] Cardiology Hospitalist 08/19/24
[2024-10-30 10:18] LABS: Alanine Aminotransferase 25 U/L (0-40); Albumin Level 4.6 g/dL (3.5-5.0); Alkaline Phosphatase 75 U/L (39-117); Anion Gap 14 (12-20); Aspartate Amino Transferase 23 U/L (5-37); Blood Urea Nitrogen 15 mg/dL (9-16); Calcium 8.7 mg/dL (8.4-10.2); Carbon Dioxide 24 mmol/L (22-29); Chloride 108 mmol/L (96-108); Cholesterol 124 mg/dL (<200); Estimated Glomerular Filt Rate > 60; HDL Cholesterol 37 mg/dL (>40); Potassium 4.0 mmol/L (3.3-5.1); Sodium 142 mmol/L (135-145); Total Protein 6.8 g/dL (6.5-8.0); Triglycerides 112 mg/dL (<150)
== END 2024-10-30 08:30 | disposition home or self-care (01) ==
LOC: HO.LAB 08:29
PROVIDERS: Visit Provider Internal Medicine
DX: E78.5 Hyperlipidemia, unspecified (principal); I25.10 Atherosclerotic heart disease of native coronary artery without angina pectoris
CPT/HCPCS: 36415; 80048; 80061; 80076